=== PATIENT | female | born 1985 | race Caucasian/White ===

== ENCOUNTER 2020-09-28 11:57 | Outpatient (CLI) | payer BC, SELFPAY ==
[2020-09-28 19:26] LABS: Basophils Absolute Auto 0.1 K/mm3 (0.0-0.1); Basophils Percent Auto 0.7 % (0.2-1.2); Eosinophils Absolute Auto 0.2 K/mm3 (0-0.3); Eosinophils Percent Auto 2.8 % (0-4.4); Hematocrit 38.8 % (37.0-47.0); Hemoglobin 12.4 g/dL (12.0-15.0); Immature Granulocyte Absolute 0.03 K/mm3 (0.00-0.031); Immature Granulocyte Percent A 0.4 % (0-0.5); Lymphocytes Absolute Auto 1.74 K/mm3 (0.9-3.2); Lymphocytes Percent Auto 20.9 % (18.3-44.2); Mean Corpuscular Hemoglobin 32.2 pg (26-34); Mean Corpuscular Volume 100.8 fl (80-100); Mean Platelet Volume 10.8 fl (7.4-10.4); Monocytes Absolute Auto 0.5 K/mm3 (0.1-0.6); Monocytes Percent Auto 6.1 % (2.6-8.5); Neutrophils Absolute Auto 5.8 K/mm3 (1.3-6.7); Neutrophils Percent Auto 69.1 % (45.5-73.1); Platelet Count Result 203 k/mm3 (150-375); Red Blood Count 3.85 M/mm3 (4.2-5.4); Red Cell Distribution Width 13.1 % (11.5-14.5); White Blood Count 8.3 K/mm3 (4.5-10.0)
[2020-09-28 19:33] LABS: Add Urine Microscopic? NO; Appearance Urine Clear (Clear); Bilirubin Urine Negative (Negative); Blood Urine Negative (Negative); Color Urine Straw (Yellow); Glucose Urine UA Negative (Negative); Ketones Urine Negative (Negative); Leukocyte Esterase Ur Negative LEU/UL (NEGATIVE); Nitrate Urine Negative (Negative); Protein Urine Negative (Negative); Urobilinogen Urine Negative mg/dL (<2.0)
[2020-09-28 19:54] LABS: Vitamin D 25 Hydroxy 29.3 ng/mL
[2020-09-28 20:08] LABS: Hepatitis B Surface Antigen Negative (Negative); Rubella IgG Antibody 36.7 IU/ML
[2020-09-28 20:16] LABS: HIV 1/2 Ab P24 Ag Result Negative (Negative)
[2020-09-28 20:24] LABS: Hepatitis C Virus Antibody Negative (Negative)
[2020-09-30 06:51] LABS: Rapid Plasma Reagin Non-Reactive (NonReactive)
[2020-10-06 14:57] LABS: Hematocrit 39.7 % (35.0-45.0); Hemoglobin 12.4 g/dL (11.7-15.5); MCH 32.5 pg (27.0-33.0); MCV 104.2 fL (80.0-100.0); RDW 14.7 % (11.0-15.0); Red Blood Cell Count 3.81 Mill/uL (3.80-5.10)
[2020-10-07 18:02] LABS: CF Result NEGATIVE (NEGATIVE)
== END 2020-09-28 11:58 | disposition home or self-care (01) ==
LOC: ANHBWCLAB 11:59
PROVIDERS: PCP Family Medicine; Visit Provider Obstetrics & Gynecology
DX: Z34.90 Encounter for supervision of normal pregnancy, unspecified, unspecified trimester (principal); Z3A.00 Weeks of gestation of pregnancy not specified
CPT/HCPCS: 36415; 81003; 81220; 82306; 83021; 84443; 85025; 86592; 86703; 86762; 86787; 86803; 86850; 86900; 86901; 87086; 87340; G0432

== ENCOUNTER 2021-01-12 15:03 | Observation (INO) | payer BC, SELFPAY ==
[2021-01-12 15:24] VITALS: BP 121/58; PULSE 72
[2021-01-12 15:30] VITALS: BMI 27.2
[2021-01-12 15:46] LABS: Add Urine Microscopic? YES; Appearance Urine Cloudy (Clear); Bacteria Urine Trace /hpf; Bilirubin Urine Negative (Negative); Blood Urine 1+ (Negative); Budding Yeast Urine Present /hpf; Color Urine Yellow (Yellow); Glucose Urine UA Negative (Negative); Ketones Urine Negative (Negative); Leukocyte Esterase Ur Negative LEU/UL (Negative); Mucus Urine Rare /lpf; Nitrate Urine Negative (Negative); Protein Urine Negative (Negative); Specific Grav Ur 1.019 (1.001-1.035); Squamous Epithelial Cell Urine Occasional /hpf (Few); Urobilinogen Urine Negative mg/dL (<2.0)
[2021-01-12] MEDS: TERBUTALINE SULFATE 1 MG/ML VIAL 0.25 MG SUB-Q (16:05)
[2021-01-12] MEDS: FLUCONAZOLE 150 MG TABLET PO (16:54)
[2021-01-12 16:57] LABS: Fetal Fibronectin Negative
--- NOTE | 2021-01-15 09:38 | PM.OBTRLD ---
OB - Triage/Final Diagnosis Visit Information Comments/Additional reasons for admission: I have assessed the risk for this patient, Kathleen Doty, and determined that she would benefit from observation care. Evaluation Laboratory results: Laboratory Tests 01/12/21 01/12/21 15:33 16:24 Urine Color Yellow Urine Appearance Cloudy H Urine pH 6.0 Ur Specific [place] 1.019 Urine Protein Negative Urine Glucose (UA) Negative Urine Ketones Negative Ur Blood (Man) 1+ H Urine Nitrate Negative Urine Bilirubin Negative Urine Urobilinogen Negative Leukocyte Esterase Rfl Negative Urine RBC 11-20 H Urine WBC 4-6 H Ur Squamous Epith Cells Occasional Urine Bacteria Trace Urine Mucus Rare Urine Yeast (Budding) Present H Fibronectin Negative Final Diagnosis (1) contractions: Code(s): O47.00 - False labor before 37 completed weeks of gestation, unspecified trimester Status: Acute
== END 2021-01-12 17:55 | disposition home or self-care (01) ==
PROVIDERS: Admitting Provider Obstetrics & Gynecology; PCP Family Medicine; Visit Provider Obstetrics & Gynecology
DX: O47.03 False labor before 37 completed weeks of gestation, third trimester (principal); Z3A.32 32 weeks gestation of pregnancy
CPT/HCPCS: 81001; 82731; 96372; A9270; G0378; G0379; J3105

== ENCOUNTER 2021-02-01 07:14 | Observation (INO) | payer BC, SELFPAY ==
--- NOTE | ~2021-02-01 | US_ITS ---
EXAMINATION: US renal BI EXAM DATE: 02/01/2021 11:36 INDICATION: Left-sided abdominal pain. . TECHNIQUE: Multiple grayscale and Doppler images of the kidneys were obtained (by a technologist who performed the scan) and subsequently reviewed. There is no prior study for comparison. FINDINGS: Right kidney: There is normal contour and echogenicity. It measures 11.8 x 5.9 x 5.2 centimeters. T here are no focal renal lesions identified. There is no hydronephrosis. Left kidney: There is normal contour and echogenicity. It measures 12.8 x 6.2 x 6.4 centimeters. Th ere are no focal renal lesions identified. There is no hydronephrosis. The bladder is collapsed with head appearing in vertex presentation on top of this. Could not e valuate confidently for ureteral jets. Renal artery resistive indices were also obtained, right side 0.80, 0.75, 0.81, and the left 0.75, 0.71, 0.70. These values are borderline elevated but relatively symmetric and there was no hydronephrosis. IMPRESSION: No hydronephrosis. Reviewed, dictated and finalized at location B. AWER IMPRESSION: No hydronephrosis.
--- NOTE | ~2021-02-01 | US_ITS ---
EXAMINATION: US OB limited EXAM DATE: 02/02/2021 07:37 INDICATION: Repeat Amniotic Fluid Index. 3rd trimester. TECHNIQUE: Pelvic obstetrical transabdominal sonogram was performed by a technologist. There are mu ltiple grayscale and Doppler images available for interpretation. Comparison is made to prior examina tion from 02/01/2021. FINDINGS: There is a single fetus identified in vertex presentation with a heart rate of 159 beats pe r minute. The placenta is located in the anterior position. There is no sonographic evidence of retr oplacental hemorrhage identified. AMNIOTIC FLUID INDEX Quadrant 1: 3.9 cm Quadrant 2: 1.2 cm Quadrant 3: 0.5 cm Quadrant 4: 2.3 cm Amniotic fluid index: 7.9 cm. (The 5th -- 95th percentile range for 36 weeks gestation as is 7.7-24.9). IMPRESSION: 1. Single fetus in vertex presentation with heart rate 159 beats per minute. 2. PETER 7.9 cm, lower limits of normal for 36 weeks gestation age. Reviewed, dictated and finalized at location D. AL HUSBANDMAN
--- NOTE | ~2021-02-01 | US_ITS ---
EXAMINATION: US OB limited w BPP DATE: 02/01/2021 11:36 INDICATION: Labral cardiac decelerations at bedside. Assess amniotic fluid index. TECHNIQUE: Real-time pelvic ultrasound was performed. The interpreting radiologist was not present fo r the study. COMPARISON: None FINDINGS: There is a single living fetus in vertex presentation. The placenta is anterior fundal. heart rate is 125 beats per minute (bpm). Oligohydramnios with amniotic fluid index of 7.3 cm (5th%-95%: 7. 9-24.9 cm at 35 weeks estimated gestational age and 7.7-24.9 cm at 36 weeks estimated gestational age ). Biophysical profile performed by the technologist: breathing (30 sec sustained breathing in 30 minutes): 2 out of 2 movement (3 gross body movements in 30 minutes): 2 out of 2 tone (one episode of wbtjmnv-njshwwigr-higyplo limb movement): 2 out of 2 Amniotic fluid pocket (2 cm): 2 out of 2 Total score: 8 out of 8 IMPRESSION: 1. Single living fetus in vertex presentation with heart rate of 125 bpm. 2. Biophysical profile 8 out of 8. 3. Oligohydramnios with amniotic fluid index of 7.3 cm which is greater than 2 standard deviations be low the mean. Reviewed, dictated and finalized at location A. LE SCHOOL READING TEACHER IMPRESSION: 1. Single living fetus in vertex presentation with heart rate of 125 bpm. 2. Biophysical profile 8 out of 8. 3. Oligohydramnios with amniotic fluid index of 7.3 cm which is greater than 2 standard deviations below the mean.
--- NOTE | 2021-02-01 07:14 | OBADM ---
This patient, Kathleen Doty, admitted to the OB room OB Post [facility] for observation. Patient/family oriented to hospital policies and general routines including ID bracelet, bed and alarms, visiting hours, pain management, procedures, bathroom and other care routines, personal items, smoking policy, room service/diet, and visiting hours. Patient/Family are encouraged to report perceived risks to care and to ask questions if they do not understand what they are told or what they should do.
[2021-02-01 07:32] VITALS: TEMP 36.3
[2021-02-01 08:00] VITALS: BP 137/79; PULSE 83
[2021-02-01 08:15] VITALS: BP 134/80; PULSE 83
[2021-02-01 08:30] VITALS: BP 135/80; PULSE 78
[2021-02-01 08:45] VITALS: BP 134/79; PULSE 77
[2021-02-01 08:46] LABS: Add Urine Microscopic? YES; Appearance Urine Clear (Clear); Bacteria Urine 1+ /hpf; Bilirubin Urine Negative (Negative); Blood Urine 1+ (Negative); Color Urine Yellow (Yellow); Glucose Urine UA Negative (Negative); Ketones Urine Negative (Negative); Leukocyte Esterase Ur Negative LEU/UL (NEGATIVE); Mucus Urine Rare /lpf; Nitrate Urine Negative (Negative); Protein Urine Negative (Negative); Specific Grav Ur 1.011 (1.001-1.035); Squamous Epithelial Cell Urine Occasional /hpf (Few); Urobilinogen Urine Negative mg/dL (<2.0)
[2021-02-01] MEDS: DEXTROSE 5%/LACTATED RINGERS 1,000 ML 999 ML IV CONT (09:00)
[2021-02-01] MEDS: fentaNYL CITRATE INJ (*CRX) 100 MCG/2 ML VIAL 50 MCG IV PUSH (09:01)
[2021-02-01] MEDS: ONDANSETRON INJ 4 MG/2 ML VIAL IV PUSH (09:03)
[2021-02-01] MEDS: METOCLOPRAMIDE HCL INJ 10 MG/2 ML VIAL IV PUSH (10:46)
[2021-02-01] MEDS: fentaNYL CITRATE INJ (*CRX) 100 MCG/2 ML VIAL IV PUSH ×2 (10:46→12:59)
[2021-02-01 12:20] VITALS: BMI 27.0
[2021-02-01] MEDS: SODIUM CHLORIDE 0.9% IV 1,000 ML 100 ML IV CONT (12:59)
--- NOTE | 2021-02-01 14:17 | PM.IMHP ---
H&P: HPI History of Present Illness Date/Time: 02/01/21 14:17 at 35+4 came in this am after waking up with severe LLQ/side pain. Pain started 2 days ago and has worsened over the last couple days with severe worsening upon waking today. No alleviating or exacerbating factors. Increased urinary frequency compared to last week. No dysuria, hematuria, vaginal bleeding, leaking fluid. Normal movement. Mild constipation recently then two episodes of diarrhea this morning. Hot flashes but no chills or known fever. Normal movement. Occasional contractions. No cough, cold, congestion, chest pain, SOB, swelling, leg pain. Chief Complaint: left lower abdominal pain in Review of Systems Review of Systems: All systems reviewed & are unremarkable except as noted in HPI and below PMFSH Past Medical History Medical History Anxiety and depression BMI 21.0-21.9, adult Dietary counseling and surveillance (04/14/16) Gastroenteritis Major depressive disorder, single episode, unspecified Surgical History Surgical History Previous section x 2 Family History Family History Father Hypertension Asthma Anxiety and depression Mother No problems noted. Sibling No problems noted. 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 [employer] Gender identity (if verbalized by the patient): Female Meds Home Medications and Allergies Home Medications Medication Instructions Recorded Confirmed Type PNV 153-FA 400 mcg-om3 35 mg-dha tablet PO 09/28/20 12/02/20 History 25 mg-epa 5 mg-fish oil chew tablet Allergies Allergy/AdvReac Type Severity Reaction Status Date / Time latex AdvReac Intermediate Rash Verified 01/21/21 13:48 Vital Signs Vital Signs - 24 hr 02/01/21 08:00 02/01/21 08:15 02/01/21 08:30 Pulse Rate 83 83 78 Blood Pressure 137/79 134/80 135/80 02/01/21 08:45 Pulse Rate 77 Blood Pressure 134/79 Exam Const: General: healthy appearing, no acute distress, alert and awake Resp: Auscultation: clear to auscultation bilaterally Cardio: Rate: regular rate Rhythm: regular rhythm GI: Inspection: non-distended GI Palp: Yes Soft to palpation, Yes Tenderness to palpation present (GI) (mild in LLQ), No Guarding due to palpation present (GI), No Rebound tenderness present and Yes Other GI palpation findings present (gravid, nontender uterus) : General: Yes no CVA tenderness Back/Spine/Pelvis: Back: No back tenderness Extrem: General: no calf tenderness and no edema Psych: Mental Status: mental status grossly normal H&P: Results Labs Labs: Urine 02/01/21 Range/Units 07:55 Urine Color Yellow (Yellow) Urine Appearance Clear (Clear) Urine pH 7.0 (5.0-9.0) Ur Specific [place] 1.011 (1.001-1.035) Urine Protein Negative (Negative) mg/dL Urine Glucose (UA) Negative (Negative) mg/dL Assessment and Plan Assessment and plan (1) Hematuria: Code(s): R31.9 - Hematuria, unspecified Status: Acute Assessment and Plan: Possible nephrolithiasis based on pain and hematuria. Rocephin X 1 given and urine culture
[2021-02-01 15:01] LABS: Basophils Percent Auto 0.2 % (0.2-1.2); Eosinophils Percent Auto 0.1 % (0-4.4); Hematocrit 30.2 % (37.0-47.0); Hemoglobin 9.8 g/dL (12.0-15.0); Immature Granulocyte Absolute 0.13 K/mm3 (0.00-0.031); Lymphocytes Percent Auto 5.5 % (18.3-44.2); Mean Corpuscular HGB Conc 32.5 g/dl (32-36); Mean Corpuscular Hemoglobin 30.8 pg (26-34); Mean Platelet Volume 10.3 fl (7.4-10.4); Monocytes Absolute Auto 0.5 K/mm3 (0.1-0.6); Monocytes Percent Auto 3.7 % (2.6-8.5); Neutrophils Absolute Auto 11.3 K/mm3 (1.3-6.7); Neutrophils Percent Auto 89.5 % (45.5-73.1); Platelet Count Result 145 k/mm3 (150-375); Red Blood Count 3.18 M/mm3 (4.2-5.4); Red Cell Distribution Width 13.6 % (11.5-14.5); White Blood Count 12.6 K/mm3 (4.5-10.0)
[2021-02-01 15:10] LABS: Alanine Aminotransferase 13 U/L (4-35); Albumin Level 3.6 g/dL (3.5-5.1); Alkaline Phosphatase 115 U/L (38-126); Anion Gap 5 mmol/L (8-16); Aspartate Amino Transferase 22 U/L (14-36); Bilirubin,Total 0.2 mg/dL (0.2-1.3); Blood Urea Nitrogen 7 mg/dL (7-17); Calcium 8.4 mg/dL (8.4-10.2); Carbon Dioxide 25 mmol/L (22-30); Chloride 101 mmol/L (98-107); Estimated CRCL calculation 98 ml/min; Estimated Glomerular Filt Rate > 60; Glucose 112 mg/dL (65-110); Lipase 36 U/L (23-300); Sodium 131 mmol/L (137-145)
[2021-02-01 15:46] VITALS: RESP 18
[2021-02-01] MEDS: FENTANYL 600MCG/NS30MLPCA(*CRX 600 MCG/30 ML PCA.VIAL IV CONT (15:46)
[2021-02-01] MEDS: FAMOTIDINE 20 MG/2 ML VIAL IV PUSH (18:29)
[2021-02-01] MEDS: DEXTROSE 5%/LACTATED RINGERS 1,000 ML 150 ML IV CONT (19:45)
[2021-02-02] MEDS: DEXTROSE 5%/LACTATED RINGERS 1,000 ML 150 ML IV CONT (02:32)
--- NOTE | 2021-02-02 08:46 | PM.OBPNVD ---
OB - PN: Subj Subjective Date/time seen: 02/02/21 08:46 She states pain is mostly resolved. No emesis. She is feeling movement. I discussed the ultrasound result. Fluid slightly increased. Not oligo. She did pass a stone yesterday and felt better after that. OB - PN: Obj Data Labs CBC & Chem 7: 02/01/21 14:50 02/01/21 14:50 Labs: Laboratory Results - last 24 hr 02/01/21 02/01/21 02/01/21 07:55 14:50 14:50 WBC 12.6 H RBC 3.18 L Hgb 9.8 L Hct 30.2 L MCV 95.0 MCH 30.8 MCHC 32.5 RDW 13.6 Plt Count 145 L MPV 10.3 Immature Gran % (Auto) 1.0 H Neut % (Auto) 89.5 H Lymph % (Auto) 5.5 L [place] % (Auto) 3.7 Eos % (Auto) 0.1 Baso % (Auto) 0.2 Lymph # (Auto) 0.70 L [place] # (Auto) 0.5 Eos # (Auto) 0.0 Baso # (Auto) 0.0 Abs Immat Gran (auto) 0.13 H Absolute Neuts (auto) 11.3 H Absolute Nucleated RBC 0.0 Nucleated RBC % 0.0 Sodium 131 L Potassium 4.0 Chloride 101 Carbon Dioxide 25 Anion Gap 5 L BUN 7 Creatinine 0.70 Estim Creat Clear Calc 98 Estimated GFR > 60 Glucose 112 H Calcium 8.4 Total Bilirubin 0.2 AST 22 ALT 13 Alkaline Phosphatase 115 Total Protein 6.0 L Albumin 3.6 Lipase 36 Urine Color Yellow Urine Appearance Clear Urine pH 7.0 Ur Specific [place] 1.011 Urine Protein Negative Urine Glucose (UA) Negative Urine Ketones Negative Ur Blood (Man) 1+ H Urine Nitrate Negative Urine Bilirubin Negative Urine Urobilinogen Negative Ur Leukocyte Esterase Negative Urine RBC 6-10 H Urine WBC 4-6 H Ur Squamous Epith Cells Occasional Urine Bacteria 1+ H Hyaline Casts 1-2 Urine Mucus Rare Imaging Radiologist's impression: Impressions Obstetrics US/Biophysical Profile 02/01/21 11:41 IMPRESSION: 1. Single living fetus in vertex presentation with heart rate of 125 bpm. 2. Biophysical profile 8 out of 8. 3. Oligohydramnios with amniotic fluid index of 7.3 cm which is greater than 2 standard deviations below the mean. Renal Ultrasound 02/01/21 11:41 IMPRESSION: No hydronephrosis. Obstetrics Ultrasound 02/02/21 07:53 IMPRESSION: 1. Single fetus in vertex presentation with heart rate 159 beats per minute. 2. PETER 7.9 cm, lower limits of normal for 36 weeks gestation age. OB - PN A/P Assessment and Plan (1) Renal calculus, left: Code(s): N20.0 - Calculus of kidney Status: Acute Assessment and Plan: She is asymptomatic today. Discussed ultrasound result. Will recheck fluid after her visit this week on . Discussed kick count and labor precautions. Will discharge home after labs. Time Spent With Patient Time: Total time spent is greater than 50% in coordination of care (as documented) at patient's floor/unit and/or counseling patient: Exam Const: General: comfortable and no acute distress Eyes: General: appearance normal, both eyes and all related structures Resp: Effort & Inspection: normal respiratory effort GI: Other: nontender Extrem: Other: nontender Psych: Appearance: grossly normal
[2021-02-02 09:37] LABS: Glucose 1 Hour PP 50gm Dose 115 mg/dL
[2021-02-02 10:18] LABS: HIV 1/2 Ab P24 Ag Result Negative (Negative)
[2021-02-03 13:25] LABS: Rapid Plasma Reagin Non-Reactive (NonReactive)
--- NOTE | 2021-03-01 10:58 | PM.OBDSVD ---
DS: Admitting Diagnosis Discharge Date 02/02/21 Admitting Diagnosis Kidney stone DS: Discharge Diagnosis Discharge Diagnosis (1) Kidney stones: Code(s): N20.0 - Calculus of kidney Status: Acute (2) Abdominal pain during in third trimester: Code(s): O26.893 - Other specified related conditions, third trimester; R10.9 - Unspecified abdominal pain Status: Acute OB - DS: Summary Hospital Course Hospital Course: Patient was admitted to observation due to abdominal left pain, hematuria and urinary frequency. She was diagnosed and treated for kidney stone. She had IV fluids, IV antibiotics and pain management. She did have a renal ultrasound which did not show significant hydronephrosis. She did pass a stone while in the hospital and her pain resolved after that. Motrin was not given. OB Procedures : Ultrasound OB Procedures Intrapartum: Other OB Procedures: : None Time Spent with Patient Time attestation: Total time spent providing and/or coordinating discharge services: Exam Const: General: no acute distress Eyes: General: appearance normal, both eyes and all related structures Resp: Effort & Inspection: normal respiratory effort : Other: no fundal tenderness Back/Spine/Pelvis: Other: no cva tenderness Extrem: General: normal to inspection Psych: Appearance: grossly normal DS: Data Data Completed and Pending Completed studies during hospitalization: Pending at discharge 02/01/21 18:12 Surgical [PTH] Routine Discharge Plan Discharge Consulting providers: Christopher Rice ; Dia Barnett ; Jose Hartman Discharging Clinician: Christopher Ovalles Patient Disposition: Home, Self-Care Activity: as tolerated Diet: regular Discharge Instructions: OB ANTEPARTUM DISCHARGE INSTRUCTIONS This information is given to help you properly care for yourself at home after your discharge from the hospital. Follow these instructions until your doctor tells you otherwise. DIET: Eat Three Well Balanced Meals per Day Drink at Least Eight 8-Ounce Glasses of Caffeine-Free Beverages Daily Additional Diet Instructions: ACTIVITY: As Tolerated Increase Periods of Rest Additional Activity Instructions: RETURN TO LABOR AND DELIVERY IF YOU HAVE: Any Change In Baby's Normal Movement Pattern Any Leakage of Fluid Contractions 3-5 Minutes Apart with Increasing Intensity Vaginal Bleeding Additional Reasons to Return to Labor and Delivery: Contractions may feel like abdominal pain, tightening, cramping, pressure, back ache, or thigh ache. OTHER INSTRUCTIONS: Follow up in office on , then to OB for NST and ultrasound. FOLLOW-UP CARE: Keep Next Scheduled Appointment To see in/on Valuables released to patient or family? Medications from home returned to patient? I Acknowledge Receipt of and Understand the Above Instructions IF YOU HAVE ANY QUESTIONS REGARDING THESE INSTRUCTIONS, PLEASE CALL [phone]. IF PROBLEMS ARISE, CALL YOUR PROVIDER. IF EMERGENCY CARE IS NEEDED, [facility] IS AVAILABLE 24 HOURS A DAY. Stand Alone Forms: General Discharge Information Follow-up/Referrals: Christopher Ovalles MD [Physician] - Discharge Medications: Continued Gummies 400 mcg-35 mg- 25 mg-5 mg tablet,chewable 1 tablet PO DAILY RF: 0 No Action hydrocodone-acetaminophen 5-325 mg Tablet 1 tablet PO Q4H PRN (Reason: Pain Rated 4-6) Qty: 30 RF: 0 ibuprofen 600 mg Tablet 600 mg PO Q6H PRN (Reason: Cramping) Qty: 60 RF: 0 Date of admission: 02/01/21 07:14 Primary Care Provider: Barney Bernal Admitting Provider: Christopher Ovalles Attending physician on admission: Christopher Ovalles Condition: Stable
== END 2021-02-02 09:20 | disposition home or self-care (01) ==
PROVIDERS: Obstetrics & Gynecology; Admitting Provider Obstetrics & Gynecology; PCP Family Medicine; Visit Provider Obstetrics & Gynecology
DX: O26.893 Other specified pregnancy related conditions, third trimester (principal); N20.0 Calculus of kidney; R31.9 Hematuria, unspecified; R10.32 Left lower quadrant pain; Z3A.35 35 weeks gestation of pregnancy
CPT/HCPCS: 36415; 76775; 76815; 76819; 80053; 81001; 82365; 82947; 83690; 85025; 86592; 86703; 87086; 88300; 96360; 96361; 96365; 96366; 96367; 96375; 96376; G0378; G0379; G0432; J0696; J2405; J2765; J3010; J7030; J7121

== ENCOUNTER 2021-02-04 16:09 | Outpatient (RCR) | payer BC, SELFPAY ==
--- NOTE | ~2021-02-04 | US_ITS ---
EXAMINATION: US OB limited w BPP DATE: 02/04/2021 17:44 INGOT SUPERVISOR INDICATION: Low amniotic fluid TECHNIQUE: Real-time transabdominal obstetric ultrasound. FINDINGS: Comparison to ultrasound dated 02/02/2021 There is a single living fetus in vertex presentation. The placenta is anterior without placenta pre via. cardiac activity and movement is noted with a heart rate of 119 beats per minute. A mniotic fluid index is within normal limits measuring 8.9 cm (normal range for gestational age being 7.7-24.9 cm). Biophysical profile: breathin of 2 movement: 2 of 2 tone: 2 of 2 Amniotic flud pocket: 2 of 2 Total score: 8 of 8 IMPRESSION: 1. Single living intrauterine in vertex presentation. 2: Total biophysical profile score of 8/8. 3: Normal PETER measures 8.9 cm. Reviewed, dictated and finalized at location A. T SUPERVISOR IMPRESSION: 1. Single living intrauterine in vertex presentation. 2: Total biophysical profile score of 8/8. 3: Normal PETRE measures 8.9 cm.
[2021-02-04 17:55] VITALS: BP 111/68; PULSE 76
== END 2021-03-04 09:46 | disposition home or self-care (01) ==
LOC: ANHOBOP 16:09
PROVIDERS: PCP Family Medicine; Visit Provider Obstetrics & Gynecology
DX: O41.03X0 Oligohydramnios, third trimester, not applicable or unspecified (principal); Z3A.36 36 weeks gestation of pregnancy
CPT/HCPCS: 59025; 76815; 76819

== ENCOUNTER 2021-02-25 11:49 | Outpatient (CLI) | payer BC, SELFPAY ==
[2021-02-25 12:44] LABS: Basophils Percent Auto 0.4 % (0.2-1.2); Eosinophils Absolute Auto 0.2 K/mm3 (0-0.3); Eosinophils Percent Auto 1.9 % (0-4.4); Hematocrit 31.4 % (37.0-47.0); Hemoglobin 9.9 g/dL (12.0-15.0); Immature Granulocyte Absolute 0.08 K/mm3 (0.00-0.031); Lymphocytes Absolute Auto 1.36 K/mm3 (0.9-3.2); Lymphocytes Percent Auto 16.4 % (18.3-44.2); Mean Corpuscular HGB Conc 31.5 g/dl (32-36); Mean Corpuscular Volume 92.1 fl (80-100); Mean Platelet Volume 11.1 fl (7.4-10.4); Monocytes Absolute Auto 0.8 K/mm3 (0.1-0.6); Monocytes Percent Auto 9.1 % (2.6-8.5); Neutrophils Absolute Auto 5.9 K/mm3 (1.3-6.7); Neutrophils Percent Auto 71.2 % (45.5-73.1); Platelet Count Result 175 k/mm3 (150-375); Red Blood Count 3.41 M/mm3 (4.2-5.4); White Blood Count 8.3 K/mm3 (4.5-10.0)
[2021-02-25 13:38] LABS: HIV 1/2 Ab P24 Ag Result Negative (Negative)
[2021-02-26 09:57] LABS: Rapid Plasma Reagin Non-Reactive (NonReactive)
== END 2021-02-25 11:50 | disposition home or self-care (01) ==
LOC: ANHLAB 11:51
PROVIDERS: PCP Family Medicine; Visit Provider Obstetrics & Gynecology
DX: Z36.89 Encounter for other specified antenatal screening (principal); Z3A.31 31 weeks gestation of pregnancy
CPT/HCPCS: 36415; 85025; 86592; 86703; G0432

== ENCOUNTER 2021-02-26 11:20 | Inpatient (IN) | payer BC, SELFPAY ==
[2021-02-26] VITALS (55 sets, daily range): BP systolic 69–152; BP diastolic 43–135; PULSE 44–212; RESP 15–18; TEMP 36–36.8; O2SAT 95–100; BMI 28.5
--- NOTE | 2021-02-26 00:55 | PM.IMHP ---
H&P: HPI History of Present Illness Date/Time: 02/26/21 00:55 Patient at 39 weeks by second trimester ultrasound which was not consistent with LMP of 06/07/20. PNC significant for prior ceserean section. She desires repeat ceserean section. She also has satisfied parity and desires permanent sterilization. She declines all other nonpermanent forms of contraception. PNC also signifcant for renal stones. She did have borderline low amniotic fluid in January which did improve with subsequent ultrasound. Labs reviewed. GBS neg. Chief Complaint: Elective repeat ceserean section. Review of Systems Review of Systems: All systems reviewed & are unremarkable except as noted in HPI and below Cardiovascular: Cardiovascular: Reports no additional cardiovascular complaints, Denies chest pain and Denies dyspnea Respiratory: Respiratory: Reports no additional respiratory complaints and Denies dyspnea Gastrointestinal: Gastrointestinal: Reports abdominal pain, Denies change in bowel habits, Denies diarrhea, Denies nausea and Denies vomiting Genitourinary: Genitourinary: Reports pelvic pain Musculoskeletal: Musculoskeletal: Reports back pain Integumentary/Breasts: Skin/Breast: Reports system reviewed and no additional complaints, except as docu Neurologic: Reports system reviewed and no additional complaints, except as documented [facility] Past Medical History Medical History Anxiety and depression BMI 21.0-21.9, adult Dietary counseling and surveillance (04/14/16) Gastroenteritis Major depressive disorder, single episode, unspecified Surgical History Surgical History Previous section x 2 Family History Family History Father Hypertension Asthma Anxiety and depression Mother No problems noted. Sibling No problems noted. 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[employer] Gender identity (if verbalized by the patient): Female Spiritual care concerns: No Meds Home Medications and Allergies Home Medications Medication Instructions Recorded Confirmed Type PNV 153-FA 400 mcg-om3 35 mg-dha 1 tablet PO DAILY 09/28/20 02/22/21 History 25 mg-epa 5 mg-fish oil chew tablet Allergies Allergy/AdvReac Type Severity Reaction Status Date / Time latex AdvReac Intermediate Rash Verified 02/24/21 15:13 Exam Const: Orientation/consciousness: oriented to person and oriented to place HENMT: Head: normal to inspection Eyes: General: appearance normal, both eyes and all related structures Resp: Effort & Inspection: normal respiratory effort Auscultation: clear to auscultation bilaterally Cardio: Rate: regular rate Rhythm: regular rhythm GI: Inspection: normal to inspection GI Palp: No Rebound tenderness present : External Female Exam: normal external appearance Speculum Exam - Vagina: normal appearance of the vagina Speculum Exam - Cervix: Other cervical findings present (cervic close thick) Neuro: General: oriented to person and oriented to place Cognition (Neuro): normal cognition Extrem: General: normal to inspection Psych: Appearance: grossly normal and well kempt Assessment and Plan Assessment and plan
--- NOTE | 2021-02-26 11:20 | LDADM ---
This patient, Kathleen Doty, was admitted to Labor/Delivery/Recovery 118 on 02/26/21 at 11:20. Plans for section, pain management and were discussed with patient. Patient/family oriented to hospital policies and general routines including ID bracelet, bed and alarms, visiting hours, pain management, procedures, bathroom and other care routines, personal items, smoking policy, room service/diet and guest tray routines, security routines, and visiting hours. Patient/Family are encouraged to report perceived risks to care and to ask questions if they do not understand what they are told or what they should do. See OBIX for further documentation.
[2021-02-26] MEDS: LACTATED RINGERS 1,000 ML 125 ML IV CONT ×2 (12:09→13:27)
--- NOTE | 2021-02-26 12:20 | P.PNAN_ITS ---
Anes - Initial Pre Proc Eval Procedure: Operation Date: 02/26/21 13:30 Proposed Procedures p Section with Tubal Ligation - Christopher Ovalles MD Date/Time: 02/26/21 12:20 Surgeon: Christopher Ovalles MD Pre Op Diagnosis: C/S Patient Data Age: 35 Gender: F Height: 1.7 m Weight: 82.5 kg Last Vital Signs Pulse 71 02/26/21 12:16 BP 118/64 02/26/21 12:16 Allergies Allergy/AdvReac Type Severity Reaction Status Date / Time latex AdvReac Intermediate Rash Verified 02/26/21 12:24 Home Medications Medication Instructions Recorded Confirmed Type PNV 153-FA 400 mcg-om3 35 mg-dha 1 tablet PO DAILY 09/28/20 02/26/21 History 25 mg-epa 5 mg-fish oil chew tablet Patient hx anesthesia problems: none Family hx anesthesia problems: none Results Review: All pre-operative results and documents have been reviewed as part of the pre-operative evaluation. [facility] Past Medical History Medical History Anxiety and depression BMI 21.0-21.9, adult Dietary counseling and surveillance (04/14/16) Gastroenteritis Major depressive disorder, single episode, unspecified Surgical History Surgical History Previous section x 2 Family History Family History Father Hypertension Asthma Anxiety and depression Mother No problems noted. Sibling No problems noted. 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[employer] Gender identity (if verbalized by the patient): Female Spiritual care concerns: No Anes - Eval Final PreProcedure Day of Procedure 02/26/21 12:20 Patient weight: overweight Heart: regular rate and rhythm Lungs: clear to auscultation and normal air movement Airway: Mallampati scale class II Neurological: alert and oriented Last oral intake: >/= 8 hours ASA classification: II Emergent: no Anesthetic plan: proceed Anesthesia type and monitoring: regional spinal and standard monitoring Results Review: All pre-operative results and documents have been reviewed as part of the pre-operative evaluation. Informed Consent: The patient's anesthetic plan and its attendant risks and benefits were discussed with the patient/family/POA. Questions were solicited and answers provided to the satisfaction of the patient/family/POA.
--- NOTE | 2021-02-26 12:21 | WPDHPUPDATE1 ---
History and Physical Update Update Date/Time: 02/26/21 12:21 History and Physical has been reviewed, including an updated exam of the patient. There are NO changes in the patient's condition. Risks, benefits, and alternatives have been discussed and questions answered. Patient agrees to proceed with procedure.
[2021-02-26 12:23] LABS: Basophils Absolute Auto 0.1 K/mm3 (0.0-0.1); Basophils Percent Auto 0.5 % (0.2-1.2); Eosinophils Absolute Auto 0.2 K/mm3 (0-0.3); Eosinophils Percent Auto 1.9 % (0-4.4); Hematocrit 31.3 % (37.0-47.0); Hemoglobin 10.2 g/dL (12.0-15.0); Immature Granulocyte Absolute 0.08 K/mm3 (0.00-0.031); Immature Granulocyte Percent A 0.8 % (0-0.5); Lymphocytes Absolute Auto 1.53 K/mm3 (0.9-3.2); Lymphocytes Percent Auto 15.7 % (18.3-44.2); Mean Corpuscular HGB Conc 32.6 g/dl (32-36); Mean Corpuscular Hemoglobin 29.8 pg (26-34); Mean Corpuscular Volume 91.5 fl (80-100); Mean Platelet Volume 11.6 fl (7.4-10.4); Monocytes Absolute Auto 0.7 K/mm3 (0.1-0.6); Monocytes Percent Auto 7.3 % (2.6-8.5); Neutrophils Absolute Auto 7.2 K/mm3 (1.3-6.7); Neutrophils Percent Auto 73.8 % (45.5-73.1); Platelet Count Result 181 k/mm3 (150-375); Red Blood Count 3.42 M/mm3 (4.2-5.4); Red Cell Distribution Width 14.2 % (11.5-14.5); White Blood Count 9.8 K/mm3 (4.5-10.0)
[2021-02-26] MEDS: ceFAZolin 2 GM/D5W 50 ML 2 GM/50 ML BAG IVPB (13:40)
[2021-02-26] MEDS: KETOROLAC 30 MG/ML VIAL (*BKC) IV PUSH (14:06)
--- NOTE | 2021-02-26 15:14 | W.PM.PROC2 ---
Procedure Note - Detailed Date of Procedure 02/26/21 Pre-op Diagnosis C/S elective and satisfied parity, desires permanent sterilization Post-op Diagnosis same Procedure Performed Repeat low transverse ceserean section and bilateral tubal ligation. Surgeon Christopher Ovalles MD Front Attendant Gre Anesthesia spinal Indications Elective repeat ceserean section and desires permanent sterilization. Findings Normal uterus and fallopian tubes and ovaries bilaterally. Male infant, 8lb 2oz, apgars 9,9. Description of Procedure The patient was taken to the operating room. Spinal anesthesia was administered and found to be adequate. The patient was placed in supine position with a left tilt and was prepped and draped in sterile fashion. Spinal anesthesia was tested and found to be adequate. A Pfannenstiel skin incision was made with a scalpel. The underlying tissue was dissected. The fascia was incised in the midline and extended bilaterally. The fascia was from rectus muscle superiorly and inferiorly and the scar tissue was dissected with dowd scissors. The rectus muscles were in the midline and the peritoneal cavity was entered bluntly. The pelvic organs were visualized. A bladder blade was inserted. The vesicouterine peritoneum was incised sharply with Metzenbaum scissors. This incision was extended laterally and a bladder flap was made by dissected the bladder from the lower uterine segment. The bladder blade was placed. A low-transverse uterine incision was made with a scalpel in the midline. The amniotic sac was entered with Metzenbaum scissors. The amniotic fluid was noted be bloody. The incision was extended bluntly. The infant's head was delivered through the incision atraumatically followed by the neck, shoulders, and rest of body with gentle fundal pressure. The 's nose and mouth were suctioned with bulb suction. The was crying spontaneously. Infant was also noted to void spontaneously. The cord was clamped and cut and the infant was handed off to awaiting nursing staff. A segment of cord was collected for cord gases. Cord blood was also collected. The placenta was then delivered manually. Uterus was exteriorized and cleared of all clots and debris. There was noted to be an extension of the uterine incision to the left lower incision and hemostasis and hemostasis and approximation obtained with figure sutures of 0 vicryl. The uterine incision was reapproximated with 0 Vicryl in interrupted figure of eights with 0 vicryl. A second imbricating layer using 0 Vicryl was performed. Hemostasis was noted. On inspection, the uterus, ovaries, and fallopian tubes appeared to be normal bilaterally. Attention was then turned to the left fallopian tube, which was identified and followed through to the fimbriated end. The tube was grasped in the distal ampullary region with a Asim clamp and elevated. Two sutures of 0 plain gut was used to enclosed the tube segment. The enclosed segment was excised. The excised portion of the tube was handed off the field to be sent to pathology. The tubal stumps were cauterized and excellent hemostasis was noted. In a similar manner, attention was turned to the right fallopian tube, which was identified and followed through to the fimbriated end. This ampullary region of the fallopian tube was grasped with a Asim clamp and elevated. Two suture of 0 plain gut were used to enclosed the tubal segment that was grasped with Asim. The enclosed segment was excised. The excised portion of this tube was handed off the field to be sent to pathology for analysis. Tubal stumps were cauterized and excellent hemostasis was noted. The uterus was replaced into the abdominal cavity. The gutters were cleared of all clots and debris. The uterine incision was inspected and noted to be hemostatic. Interceed placed horizontally over incision and anteriorly. The muscle bellies were inspected and there was bleeding from the superi
[2021-02-26] MEDS: OXYTOCIN 30 UNITS/NS 500 ML 30 UNITS/500 ML BAG 125 UNITS IV CONT (16:49)
--- NOTE | 2021-02-26 17:45 | PC.NURSE ---
Patient transferred to post room #[id number] via stretcher. Support person present. Oriented to unit, room, information board, rooming in, admission packet and security measures. Patient verbalizes understanding.
[2021-02-26] MEDS: DEXTROSE 5%/0.45% SOD CHL 1,000 ML 125 ML IV CONT (23:22)
[2021-02-26] MEDS: IBUPROFEN 600 MG TABLET PO (23:43)
[2021-02-27 03:45] VITALS: BP 83/45; PULSE 59; RESP 18; TEMP 35.9; O2SAT 99
[2021-02-27 04:20] LABS: Basophils Percent Auto 0.4 % (0.2-1.2); Eosinophils Absolute Auto 0.2 K/mm3 (0-0.3); Eosinophils Percent Auto 1.9 % (0-4.4); Hematocrit 23.3 % (37.0-47.0); Hemoglobin 7.4 g/dL (12.0-15.0); Immature Granulocyte Absolute 0.05 K/mm3 (0.00-0.031); Immature Granulocyte Percent A 0.5 % (0-0.5); Lymphocytes Absolute Auto 1.31 K/mm3 (0.9-3.2); Lymphocytes Percent Auto 12.1 % (18.3-44.2); Mean Corpuscular HGB Conc 31.8 g/dl (32-36); Mean Corpuscular Hemoglobin 29.2 pg (26-34); Mean Corpuscular Volume 92.1 fl (80-100); Mean Platelet Volume 11.3 fl (7.4-10.4); Monocytes Absolute Auto 0.8 K/mm3 (0.1-0.6); Monocytes Percent Auto 7.1 % (2.6-8.5); Neutrophils Absolute Auto 8.5 K/mm3 (1.3-6.7); Platelet Count Result 150 k/mm3 (150-375); Red Blood Count 2.53 M/mm3 (4.2-5.4); White Blood Count 10.9 K/mm3 (4.5-10.0)
[2021-02-27 07:04] VITALS: BP 104/52; PULSE 67; RESP 12; TEMP 36.1; O2SAT 96
[2021-02-27] MEDS: DOCUSATE SODIUM 100 MG CAPSULE PO ×2 (07:07→17:01)
[2021-02-27] MEDS: POLYSACCHARIDE IRON COMPLEX 150 MG CAPSULE PO ×2 (07:08→17:01)
[2021-02-27] MEDS: MULTIVIT/MIN/PREN/FOL AC/IRON TABLET 1 TAB PO (07:08)
[2021-02-27] MEDS: IBUPROFEN 600 MG TABLET PO ×3 (07:08→22:24)
[2021-02-27] MEDS: HYDROcodone/acetaminophen (*CRX) 5-325 MG TABLET 1 TAB PO ×4 (07:09→22:24)
[2021-02-27] MEDS: SIMETHICONE 80 MG TAB.CHEW PO ×3 (07:12→22:24)
--- NOTE | 2021-02-27 08:47 | WPDANLDPN2 ---
Anes-Prog Note L&D Date/Time: 02/27/21 08:47 Comfortable throughout: section Neuraxial method: spinal Epidural/Spinal procedure site: clean & non-tender Neuro status: Neuro function grossly intact. Cardiovascular status: normal Respiratory status: normal Airway patency: baseline Mental status: baseline Post-Op hydration status: normal Vital Signs: Last Vital Signs Temp 96.9 F L 02/27/21 07:04 Pulse 67 02/27/21 07:04 Resp 12 02/27/21 07:04 BP 104/52 L 02/27/21 07:04 Pulse Ox 96 02/27/21 07:04 Pain score (VAS): 0 I/O: Intake & Output 02/26/21 02/27/21 02/27/21 23:59 07:59 15:59 Intake Total 600 1000 Output Total 468 1450 Balance 132 -450 Post-procedural complaints: none Patient feedback: Patient satisfied with anesthetic care.
--- NOTE | 2021-02-27 08:48 | WPDANLDNPN2 ---
Anes-Prog Note L&D-Neuraxial Date/Time: 02/27/21 08:48 Neuraxial medications: intrathecal PF morphine Opiod-related complaints: none Patient feedback: Patient satisfied with post-operative pain management.
--- NOTE | 2021-02-27 10:36 | P.PNOB_ITS ---
OB - PN: Subj Subjective Date/time seen: 02/27/21 10:36 Patient comments: no complaints, pain well controlled, incisional pain, tolerating diet, flatus present and other (Lochia similar to menses. No CP, SOB, dizziness) [place] baby status: doing well OB - PN: Obj Data Labs CBC & Chem 7: 02/27/21 03:25 Labs: Laboratory Results - last 24 hr 02/26/21 02/26/21 02/27/21 11:54 11:54 03:25 WBC 9.8 10.9 H RBC 3.42 L 2.53 L Hgb 10.2 L 7.4 L Hct 31.3 L 23.3 L MCV 91.5 92.1 MCH 29.8 29.2 MCHC 32.6 31.8 L RDW 14.2 14.0 Plt Count 181 150 MPV 11.6 H 11.3 H Immature Gran % (Auto) 0.8 H 0.5 Neut % (Auto) 73.8 H 78.0 H Lymph % (Auto) 15.7 L 12.1 L Bureau % (Auto) 7.3 7.1 Eos % (Auto) 1.9 1.9 Baso % (Auto) 0.5 0.4 Lymph # (Auto) 1.53 1.31 Bureau # (Auto) 0.7 H 0.8 H Eos # (Auto) 0.2 0.2 Baso # (Auto) 0.1 0.0 Abs Immat Gran (auto) 0.08 H 0.05 H Absolute Neuts (auto) 7.2 H 8.5 H Absolute Nucleated RBC 0.0 0.0 Nucleated RBC % 0.0 0.0 Blood Type O Positive Antibody Screen Negative OB - PN A/P Plan day: 1 (s/p C section, doing well) Plan: routine care Time Spent With Patient Time: Total time spent is greater than 50% in coordination of care (as documented) at patient's floor/unit and/or counseling patient: Exam Const: General: no acute distress Resp: Auscultation: clear to auscultation bilaterally Cardio: Rate: regular rate Rhythm: regular rhythm GI: Inspection: non-distended, incision (Intact without erythema, drainage, or induration) and other (Fundus firm and nontender at umbilicus) GI Palp: Yes abdominal tenderness (appropriate ) and Yes Soft to palpation Extrem: General: no edema
[2021-02-27 12:44] VITALS: BP 102/53; PULSE 77; RESP 16; TEMP 37; O2SAT 100
[2021-02-27 20:13] VITALS: BP 122/56; PULSE 71; RESP 16; TEMP 36.7; O2SAT 100
[2021-02-27] MEDS: TETANUS,DIPHTHERIA,AC PERTUSSIS ADULT (0.5 ML) BOOSTRIX IM (20:39)
[2021-02-28] MEDS: SIMETHICONE 80 MG TAB.CHEW PO ×3 (05:40→13:55)
[2021-02-28] MEDS: IBUPROFEN 600 MG TABLET PO ×2 (05:40→13:54)
[2021-02-28] MEDS: HYDROcodone/acetaminophen (*CRX) 5-325 MG TABLET 1 TAB PO ×3 (05:40→13:54)
[2021-02-28 08:20] VITALS: BP 109/53; PULSE 67; RESP 18; TEMP 36.6
[2021-02-28] MEDS: MULTIVIT/MIN/PREN/FOL AC/IRON TABLET 1 TAB PO (08:28)
[2021-02-28] MEDS: POLYSACCHARIDE IRON COMPLEX 150 MG CAPSULE PO (08:29)
[2021-02-28] MEDS: DOCUSATE SODIUM 100 MG CAPSULE PO (08:29)
[2021-02-28 08:30] VITALS: PULSE 67; RESP 18; O2SAT 100
--- NOTE | 2021-02-28 10:10 | PM.OBPNVD ---
OB - PN: Subj Subjective Date/time seen: 02/28/21 10:10 Patient comments: no complaints, pain well controlled, tolerating diet, flatus present and other (Ambulating and voiding without problems. Lochia similar to menses. No CP, SOB, dizziness) baby status: doing well OB - PN: Obj Data Labs CBC & Chem 7: 02/27/21 03:25 OB - PN A/P Plan day: 2 (s/p C section, doing well) Plan: routine care and discharge home (Follow up in 1 week) Time Spent With Patient Time: Total time spent is greater than 50% in coordination of care (as documented) at patient's floor/unit and/or counseling patient: Time with patient: less than 15 minutes Exam Const: General: no acute distress Resp: Auscultation: clear to auscultation bilaterally Cardio: Rate: regular rate Rhythm: regular rhythm GI: Inspection: non-distended, incision (Intact without erythema, drainage, or induration) and other (Fundus firm and nontender below umbilicus) GI Palp: Yes abdominal tenderness (appropriate) and Yes Soft to palpation Extrem: General: no edema
--- NOTE | 2021-02-28 10:11 | PM.OBDSVD ---
DS: Admitting Diagnosis Discharge Date 02/28/2021 Admitting Diagnosis Prior , desires sterilization DS: Discharge Diagnosis Discharge Diagnosis (1) Delivery by elective section: Code(s): O82 - Encounter for delivery without indication Status: Acute (2) Encounter for sterilization: Code(s): Z30.2 - Encounter for sterilization Status: Acute OB - DS: Summary OB Procedures : None OB Procedures Intrapartum: and Tubal ligation OB Procedures: : None Peripartum Data Delivery Method: Section Procedures: Procedures Operation Date: 02/26/21 13:30 Actual Procedure Side Surgeon p Section Not Applicable Christopher Ovalles MD complications: none Status at Discharge Functional status at discharge: independent ambulation Overall status at discharge: patient is progressing back to baseline Time Spent with Patient Time attestation: Total time spent providing and/or coordinating discharge services: Time spent: Less than 30 minutes DS: Data Data Completed and Pending Pending studies at discharge: Pending at discharge 02/26/21 14:24 Surgical [PTH] Routine 02/26/21 14:26 Surgical [PTH] Routine Discharge Plan Discharge Attending physician on discharge: Christopher Ovalles Discharging Clinician: Dia Barnett Patient Disposition: Home, Self-Care Activity: may shower and pelvic rest Diet: as tolerated Wound Care Instructions: incision open to air Patient Instructions: Antibiotic Form Stand Alone Forms: General Discharge Information Follow-up/Referrals: Christopher Ovalles MD [Physician] - 1 Week Discharge Medications: New hydrocodone-acetaminophen 5-325 mg Tablet 1 tablet PO Q4H PRN (Reason: Pain Rated 4-6) Qty: 30 RF: 0 ibuprofen 600 mg Tablet 600 mg PO Q6H PRN (Reason: Cramping) Qty: 60 RF: 0 Continued Gummies 400 mcg-35 mg- 25 mg-5 mg tablet,chewable 1 tablet PO DAILY RF: 0 Date of admission: 02/26/21 11:20 Primary Care Provider: Barney Bernal Admitting Provider: Christopher Ovalles Attending physician on admission: Christopher Ovalles Condition: Stable
[2021-03-01 11:22] LABS: Rapid Plasma Reagin Non-Reactive (NonReactive)
== END 2021-02-28 13:58 | disposition home or self-care (01) | DRG 540 ==
LOC: ANHOB2 02-28 10:32 → ANHLDR 03-02 11:44 → ANHOB2 03-02 11:44
PROVIDERS: Admitting Provider Obstetrics & Gynecology; PCP Family Medicine; Visit Provider Obstetrics & Gynecology
PROC: 10D00Z1 Extraction of Products of Conception, Low, Open Approach (ICD-10-PCS; CPT 59514; principal; 2021-02-26 13:30)
DX: O34.219 Maternal care for unspecified type scar from previous cesarean delivery (principal); Z30.2 Encounter for sterilization; O77.0 Labor and delivery complicated by meconium in amniotic fluid; O69.81X0 Labor and delivery complicated by cord around neck, without compression, not applicable or unspecified; Z3A.39 39 weeks gestation of pregnancy; Z37.0 Single live birth
CPT/HCPCS: 36415; 85025; 86592; 86850; 86900; 86901; 88302; 88307; 90715; A9270; J0131; J0690; J1885; J2274; J2370; J2405; J2590; J7120